=== PATIENT | female | born 1955 | race American Indian/Alaskan Native ===

== ENCOUNTER 2017-01-08 05:09 | Emergency (ER) | payer OTHER ==
[2017-01-08 07:47] VITALS: BP 147/99
[2017-01-08] MEDS ORDERED: PERCOCET 5/325 PO ONE (07:53)
[2017-01-08] MEDS ORDERED: TORADOL IM ONE (07:53)
[2017-01-08] MEDS ORDERED: VALIUM PO ONE (07:53)
--- NOTE | 2017-01-08 07:53 | Emergency Department Report ---
ED Neck Pain/Injury HPI - General Chief Complaint: Neck Pain/Injury Stated Complaint: NECK PAIN Time Seen by Provider: 01/08/17 07:31 Source: patient, family Mode of arrival: Ambulatory Limitations: No Limitations - History of Present Illness Initial Comments: This is a 61-year-old female here complaining that she has neck pain to the right side of her neck that feels stiff. She denies any fever or chills. Denies any headache. She says she's had this in the past she said she will call up and the right side of her neck is stiff and she feels like she can't move it. She said it started yesterday afternoon after she got up and she took some of her Flexeril but it didn't help. She says she applied heat and that did not help either. She denies any cough any injury, any sore throats any fever or chills. Pain is 10 out of 10 and feels stiff and spasm. Pain is worse with movement better with rest. Patient denies any medical problem and she does have access to primary care. Blood pressure was elevated at 155/106 and she denies any history of high blood pressure. She is asymptomatic with high blood pressure MD Complaint: neck pain, neck injury Onset/Timin -: days(s) Place: home Radiation: right lateral Severity: constant Severity scale (0 -10): 10 Quality: other Consistency: constant Improves With: immobilization, rest supine Worsens With: movement of neck Context: unknown Associated Symptoms: denies: headache, fever, numbness, tingling, weakness, vertigo, difficulty walking, swollen glands, difficulty swallowing, nausea, vomiting Treatments Prior to Arrival: prescription pain med ( medication), heat therapy - Related Data Previous Rx's Medication Instructions Recorded Last Taken Type Lansoprazole (Nf) [Prevacid (Nf)] 30 mg PO QDAY #15 capsule 03/28/15 Unknown Rx Ondansetron [Zofran Odt] 4 mg SL Q6H PRN #8 tab.rapdis 03/28/15 Unknown Rx Diazepam Tab [Valium] 5 mg PO TID PRN #9 tablet 01/08/17 Unknown Rx Naproxen [Naprosyn TAB] 500 mg PO BID PRN #12 tablet 01/08/17 Unknown Rx Allergies Allergy/AdvReac Type Severity Reaction Status Date / Time No Known Allergies Allergy Unverified 03/28/15 12:23 ED Review of Systems ROS: Stated complaint: NECK PAIN Other details as noted in HPI Comment: All other systems reviewed and negative Constitutional: no symptoms reported Eyes: denies: eye pain, eye discharge, vision change ENT: denies: ear pain, throat pain, congestion Respiratory: no symptoms reported Cardiovascular: denies: chest pain, palpitations, dyspnea on exertion, orthopnea , edema, syncope, paroxysmal nocturnal dyspnea Gastrointestinal: denies: abdominal pain, nausea, vomiting, diarrhea, constipation Musculoskeletal: myalgia. denies: back pain, joint swelling, arthralgia Skin: denies: rash Neurological: denies: headache, weakness, numbness, paresthesias, confusion, abnormal gait, vertigo ED Past Medical Hx - Past Medical History Previous Medical History?: No - Surgical History Past Surgical History?: No - Family History Family history: no significant - Social History Smoking Status: Never Smoker Substance Use Type: None Other Social History: - Medications Home Medications: Home Medications Medication Instructions Recorded Confirmed Last Taken Type Lansoprazole (Nf) [Prevacid (Nf)] 30 mg PO QDAY #15 capsule 03/28/15 Unknown Rx Ondansetron [Zofran Odt] 4 mg SL Q6H PRN #8 tab.rapdis 03/28/15 Unknown Rx Diazepam Tab [Valium] 5 mg PO TID PRN #9 tablet 01/08/17 Unknown Rx Naproxen [Naprosyn TAB] 500 mg PO BID PRN #12 tablet 01/08/17 Unknown Rx ED Physical Exam - General Limitations: No Limitations General appearance: alert, in no apparent distress - Head Head exam: Present: atraumatic, normocephalic, normal inspection - Expanded Head Exam Expanded Head exam: Absent: laceration, abrasion, contusion, hematoma, racoon eyes, garcia's sign, general tenderness, tenderness of temporal artery, CSF rhinorrhea , CSF otorrhea - Eye Eye exam: Present: normal appearance, PERRL, EOMI. Absent: conjunctival injection, nystagmus, periorbital swelling, periorbital tenderness Pupils: Present: normal accommodation - ENT ENT exam: Present: normal exam, normal orophraynx, mucous membranes moist, TM's normal bilaterally, normal external ear exam - Neck Neck exam: Present: normal inspection, tenderness (right lateral neck), full ROM (patient patient able to move her neck but is heard when she moves her neck to the side she said it hurts on the right side. Positive neck spasm felt.), other (no c-spine tenserness). Absent: meningismus, lymphadenopathy - Expanded Neck Exam Expanded Neck exam: Present: tenderness (right lateral neck). Absent: midline deformity , anterior neck swelling, tracheal deviation - Respiratory Respiratory exam: Present: normal lung sounds bilaterally. Absent: respiratory distress, wheezes, rales, rhonchi, stridor, chest wall tenderness, accessory muscle use, decreased breath sounds, prolonged expiratory - Cardiovascular Cardiovascular Exam: Present: regular rate, normal rhythm, normal heart sounds. Absent: systolic murmur, diastolic murmur - GI/Abdominal GI/Abdominal exam: Present: soft, normal bowel sounds. Absent: distended, tenderness, guarding, rebound, rigid - Extremities Exam Extremities exam: Present: normal inspection, full ROM, normal capillary refill , other (No C/C/E. +2 pulses in all extremities. No neurovascular compromise. Patient with normal motor and sensory function.). Absent: tenderness, pedal edema, joint swelling, calf tenderness - Back Exam Back exam: Present: normal inspection, full ROM. Absent: tenderness, CVA tenderness (R), CVA tenderness (L), muscle spasm, paraspinal tenderness, vertebral tenderness - Neurological Exam Neurological exam: Present: alert, oriented X3, normal gait, reflexes normal. Absent: motor sensory deficit - Psychiatric Psychiatric exam: Present: normal affect, normal mood - Skin Skin exam: Present: warm, dry, intact, normal color. Absent: rash ED Course Vital Signs 01/08/17 01/08/17 05:15 07:44 Temperature 98.7 F Pulse Rate 92 H Respiratory 17 Rate Blood Pressure 155/106 147/99 O2 Sat by Pulse 99 Oximetry - Reevaluation(s) Reevaluation #1: 01/08/17 08:20 She given Valium 5 mg po, Toradol 30 mg IM and Percocet 5/325 tablets 2 tablets by mouth for neck pain and stiffness. Patient says she feels better and her blood pressure has decreased even though it still elevated. 01/08/17 08:21 ED Medical Decision Making - Medical Decision Making ED course: Patient presented to emergency room with right neck stiffness and pain with spasm. Physical findings for moderate target torticollis right neck. Patient was given Valium 5 mg by mouth, Percocet 5/325 2 tablets by mouth and Toradol 30 mg IM and emergency room with relief of pain down to 3/10 and she said the spasm is better. I discussed the patient that she needs to avoid taking in prescription medication that does not belong to her because he can't have a negative reaction. I discussed diagnosis and treatment plan with patient and she voiced understanding. That pressure is better that I discussed with her that it is still elevated and she will need to keep a log of her blood pressure and make an appointment to see her primary care physician in 3 days for follow-up visit and torticollis and elevated blood pressure reading in. I told her to take log with her to primary care visit. Patient discharged home in stable condition with prescription for nothing by mouth, naproxenFinaldiagnosis for moderate torticollis that has subsided medication, neck pain and stiffness and elevated blood pressure reading without diagnosis of high blood pressure. Critical care attestation.: If time is entered above; I have spent that time in minutes in the direct care of this critically ill patient, excluding procedure time. ED Disposition Clinical Impression: Torticollis, acute, Acute neck pain, Elevated blood pressure reading without diagnosis of hypertension Disposition: DC-01 TO HOME OR SELFCARE Is pt being admited?: No Does the pt Need Aspirin: No Condition: Stable Instructions: Hypertension (ED), Spasmodic Torticollis (ED), Muscle Spasm (ED) Additional Instructions: Please do not drive or operate heavy machinery while taking Valium as this medication can cause drowsiness Please keep along a few blood pressure and schedule primary care visit for 3 days and take blood pressure reading with you. Pressure was elevated and emergency room today and this could be because the pain. Prescriptions: Diazepam Tab [Valium] 5 mg PO TID PRN #9 tablet PRN Reason: Muscle Spasm Naproxen [Naprosyn TAB] 500 mg PO BID PRN #12 tablet PRN Reason: Pain Referrals: PRIMARY CARE, [Primary Care Provider] - 01/11/17 Forms: Work/School Release Form(ED)
== END 2017-01-08 08:50 | disposition home or self-care (01) ==
LOC: ED 05:09
DX: M43.6 Torticollis (principal)
CPT/HCPCS: 96372; 99282; J1885

== ENCOUNTER 2019-08-07 13:45 | Emergency (ER) | payer OTHER ==
--- NOTE | 2019-08-07 13:55 | Emergency Department Report ---
HPI - General Time Seen by Provider: 08/07/19 13:53 - HPI HPI: Room 21 The patient is a 64-year-old female present with a chief complaint of chest pain and palpitations. The patient states she was at home working when she began to feel pain in the upper chest and palpitations. Patient denies shortness of breath. Patient states she has had episodes of the same in the past and has been diagnosed with SVT. Patient states she attempted vagal maneuvers but it has not helped. EMS attempted adenosine 6 mg IV from an IV in the left forearm but there was no change. ED Past Medical Hx - Past Medical History Hx Hypertension: Yes - Surgical History Past Surgical History?: No - Family History Family history: no significant - Social History Smoking Status: Never Smoker Substance Use Type: None - Medications Home Medications: Home Medications Medication Instructions Recorded Confirmed Last Taken Type Lansoprazole (Nf) [Prevacid (Nf)] 30 mg PO QDAY #15 capsule 03/28/15 Unknown Rx Ondansetron [Zofran Odt] 4 mg SL Q6H PRN #8 tab.rapdis 03/28/15 Unknown Rx Naproxen [Naprosyn TAB] 500 mg PO BID PRN #12 tablet 01/08/17 Unknown Rx diazePAM TAB [Valium] 5 mg PO TID PRN #9 tablet 01/08/17 Unknown Rx ED Review of Systems ROS: Stated complaint: CHEST PAIN Other details as noted in HPI Constitutional: no symptoms reported Respiratory: denies: shortness of breath Cardiovascular: chest pain, palpitations Endocrine: no symptoms reported Gastrointestinal: denies: abdominal pain Genitourinary: denies: dysuria Musculoskeletal: denies: back pain Neurological: denies: headache Physical Exam - Physical Exam Physical Exam: GENERAL: The patient is well-developed well-nourished female lying on stretcher appearing slightly anxious. [] HEENT: Normocephalic. Atraumatic. Extraocular motions are intact. Patient has moist mucous membranes. NECK: Supple. Trachea midline CHEST/LUNGS: Clear to auscultation. There is no respiratory distress noted. HEART/CARDIOVASCULAR: Regular. There is tachycardia. There is no gallop rub or murmur. ABDOMEN: Abdomen is soft, nontender. Patient has normal bowel sounds. There is no abdominal distention. SKIN: There is no rash. There is no edema. There is no diaphoresis. NEURO: The patient is awake, alert, and oriented. The patient is cooperative. The patient has normal speech MUSCULOSKELETAL: There is no evidence of acute injury. ED Course - Reevaluation(s) Reevaluation #1: 08/07/19 14:10 Patient converted to sinus tachycardia after 12 mg of adenosine. First attempt and 6 mg of adenosine in the ED was unsuccessful. Patient states she is feeling better Reevaluation #3: 08/07/19 15:40 Patient remains asymptomatic. Strong warnings given ED Medical Decision Making - Lab Data Result diagrams: 08/07/19 14:38 08/07/19 14:38 - EKG Data -: EKG Interpreted by Me Rate: tachycardia (SVT at 175 bpm) - EKG Data When compared to previous EKG there are: previous EKG unavailable Interpretation: other (SVT) 08/07/19 14:12 EKG #2 (after adenosine 12 mg IV)-sinus tachycardia at 124 bpm. No ischemic changes seen - Radiology Data Radiology results: report reviewed (Chest x-ray), image reviewed (Chest x-ray) interpreted by me: Chest x-ray-no focal infiltrates, no pneumothorax Findings [facility] [address] [place] [address] XRay Report Signed Patient: PASTOR MOJICA MR#: [id number] : 1955 Acct:[id number] Age/Sex: 64 / F ADM Date: 08/07/19 Loc: ED Attending Dr: Ordering Physician: JEROME ARTIS MD Date of Service: 08/07/19 Procedure(s): XR chest 1V ap Accession Number(s): [id number] cc: JEROME ARTIS MD Fluoro Time In Minutes: CHEST 1 VIEW, 08/07/2019 1:26 PM CLINICAL INFORMATION/INDICATION: Chest pain COMPARISON: None FINDINGS: SUPPORT DEVICES: None. HEART: The cardiac silhouette is normal in size. LUNGS/PLEURA: The lungs are clear of focal airspace disease or significant pleural effusion. ADDITIONAL FINDINGS: No additional acute findings. IMPRESSION: 1. No evidence of acute cardiopulmonary process. Signer Name: Diamond Hoyt MD Signed: 08/07/2019 2:29 PM Workstation Name: [id number] Transcribed By: HALINA Dictated By: Diamond Hoyt MD Electronically Authenticated By: Diamond Hoyt MD Signed Date/Time: 08/07/191428 DD/ 27 TD/TT: - Differential Diagnosis PSVT Critical care attestation.: If time is entered above; I have spent that time in minutes in the direct care of this critically ill patient, excluding procedure time. ED Disposition Clinical Impression: PSVT (paroxysmal supraventricular tachycardia), Hypomagnesemia Disposition: TO HOME OR SELFCARE Is pt being admited?: No Does the pt Need Aspirin: No Condition: Stable Instructions: Supraventricular Tachycardia (ED) Additional Instructions: Return to the emergency department should you develop worsening symptoms, inability to tolerate food or liquids, high fever or any other concerns Referrals: KARLY BUI MD [Staff Physician] - 3-5 Days Time of Disposition: 15:39
[2019-08-07] MEDS ORDERED: ADENOSINE 6 MG/2 ML INJ ONE ×2 (14:01→14:07)
[2019-08-07] MEDS ORDERED: ADENOSINE 6 MG/2 ML INJ IV ONE ×2 (14:03→14:04)
[2019-08-07] MEDS ORDERED: SODIUM CHLORIDE 0.9% 1000 ML 1,000 ML IV ONE (14:09)
[2019-08-07] MEDS ORDERED: SODIUM CHLORIDE 0.9% 1000 ML 1,000 ML ONE (14:10)
--- NOTE | 2019-08-07 14:34 | XRay Report ---
CHEST 1 VIEW, 08/07/2019 1:26 PM CLINICAL INFORMATION/INDICATION: Chest pain COMPARISON: None FINDINGS: SUPPORT DEVICES: None. HEART: The cardiac silhouette is normal in size. LUNGS/PLEURA: The lungs are clear of focal airspace disease or significant pleural effusion. ADDITIONAL FINDINGS: No additional acute findings. IMPRESSION: 1. No evidence of acute cardiopulmonary process. Signer Name: Diamond Hoyt MD Signed: 08/07/2019 2:29 PM Workstation Name: [id number]
[2019-08-07 14:54] LABS: Basophils % (Auto) 0.5 % (0.0-1.8); Eosinophils % (Auto) 0.2 % (0.0-4.3); Hemoglobin 16.1 gm/dl (10.1-14.3); Lymphocytes # (Auto) 1.5 K/mm3 (1.2-5.4); Lymphocytes % (Auto) 23.2 % (13.4-35.0); Mean Corpuscular HGB Conc 34 % (30-34); Mean Corpuscular Volume 102 fl (79-97); Monocytes # (Auto) 0.7 K/mm3 (0.0-0.8); Monocytes % (Auto) 11.3 % (0.0-7.3); Platelet Count 220 K/mm3 (140-440); Red Cell Distribution Width 14.1 % (13.2-15.2)
[2019-08-07 15:17] LABS: Creatine Kinase MB 1.2 ng/mL (0.0-4.0)
[2019-08-07 15:20] LABS: BUN/Creatinine Ratio 15; Blood Urea Nitrogen 9 mg/dL (7-17); Calcium 9.6 mg/dL (8.4-10.2); Hemolysis Index 32
[2019-08-07] MEDS ORDERED: MAGNESIUM SULFATE 2 GM/50 ML BAG IV ONE (15:25)
[2019-08-07 15:27] LABS: Free T4 (Free Thyroxine) 1.28 ng/dL (0.76-1.46)
[2019-08-07 16:17] VITALS: BP 127/103
== END 2019-08-07 16:16 | disposition home or self-care (01) ==
LOC: ED 13:45
DX: I47.1 Supraventricular tachycardia (principal); I47.9 Paroxysmal tachycardia, unspecified; E83.42 Hypomagnesemia; I10 Essential (primary) hypertension; Z88.6 Allergy status to analgesic agent; Z79.899 Other long term (current) drug therapy
CPT/HCPCS: 36415; 71045; 80048; 82550; 82553; 83735; 84439; 84443; 84484; 85025; 93005; 96365; 96375; 96376; 99285; J0153; J3475; J7030